=== PATIENT | female | born 1970 | race African-American/Black ===

== ENCOUNTER 2017-04-02 10:36 | Outpatient (CLI) | payer OTHER ==
--- NOTE | 2017-04-02 14:04 | RAD ---
LUMBAR SPINE THREE VIEWS: HISTORY: Low back pain. FINDINGS: Vertebral body heights are maintained. Mild osteophytosis is present throughout the vertebral indu s and facets. Grade I spondylolisthesis at the L4-5 level does not change significantly upon flexio n or extension. IMPRESSION: Lumbar spondylosis with grade I spondylolisthesis at the L4-5 level. POS: CRYSTAL
--- NOTE | 2017-04-02 15:25 | MRI ---
LUMBAR SPINE MRI NONCONTRAST: Date: 04/02/17 INDICATION: Lumbar radiculopathy. FINDINGS: Conus medullaris terminates at the L1 level. There is no acute abnormality of the retroperitoneum. M ultilevel bilateral facet osteoarthritis with associated hypertrophy present, greatest inferiorly, w ith moderate to severe facet osteoarthritis at the L4-5 level. L5-S1: Left asymmetric disc osteophyte complex results in mild central canal stenosis, moderate left and mi ld right neural foraminal stenosis. L4-5: Prominent right facet osteoarthritis with associated osseous hypertrophy occupying the posterior and right aspect of the vertebral canal results in moderate to severe central canal stenosis and imping ement of the traversing right L5 nerve root with severe right subarticular zone narrowing. There is mild bilateral, right greater than left, neural foraminal stenosis. L3-4: Mild narrowing of the central canal. No high grade foraminal stenosis. L2-3: No high grade central canal or foraminal compromise. L1-2: No high grade central canal or neural foraminal stenosis. IMPRESSION: Multilevel degenerative change, most pronounced at L4-5, with moderate to severe central canal steno sis and impingement upon the traversing right L5 nerve root. POS: CRYSTAL
== END 2017-04-02 10:37 | disposition home or self-care (01) ==
LOC: TBSIIMAG 10:36
PROVIDERS: ATTEND Neurological Surgery
DX: M47.26 Other spondylosis with radiculopathy, lumbar region (principal); M48.061 Spinal stenosis, lumbar region without neurogenic claudication; M43.16 Spondylolisthesis, lumbar region
CPT/HCPCS: 72100; 72148

== ENCOUNTER 2018-06-07 06:42 | Day surgery (SDC) | payer OTHER ==
[2018-05-18 13:07] VITALS: BMI 39.9
[2018-06-07 07:33] LABS: #Basophils 0.1 thou/uL (0.0-0.2); #Eosinphils 0.2 thou/uL (0.0-0.7); #Lymphocytes 2.8 thou/uL (1.20-3.40); #Monocytes 0.6 thou/uL (0.11-0.59); #Neutrophils 2.2 thou/uL (1.40-6.50); %Basophils 2.1 % (0.0-1.0); %Eosinophils 2.6 % (0.0-10.0); %Monocytes 10.3 % (0.0-10.0); Hemoglobin 12.1 g/dL (12.0-16.0); Mean Corpuscular HGB CONC 31.4 g/dL (32.0-36.0); Mean Corpuscular Hemoglobin 25.4 pg (27.0-31.0); Mean Corpuscular Volume 80.9 fL (78.0-98.0); Mean Platelet Volume 8.5 fL (7.4-10.4); Platelet Count 343 thou/uL (130-400); RBC Distribution Width 13.4 % (11.5-14.5); Red Blood Cell (RBC) Count 4.76 mill/uL (4.20-5.40); White Blood Cell (WBC) Count 5.9 thou/uL (4.8-10.8)
[2018-06-07 07:54] LABS: Anion Gap 12 mmol/L (10-20); BUN (Urea Nitrogen) 17 mg/dL (7.0-18.7); Calc. Creatinine Clearance 158 mL/min (70-130); Calcium 9.3 mg/dL (7.8-10.44); Carbon Dioxide 27 mmol/L (22-29); Chloride 101 mmol/L (98-107); Estimated GFR-MDRD 81; Glucose 84 mg/dL (70-105); Sodium 136 mmol/L (136-145)
[2018-06-07] MEDS ORDERED: Midazolam HCl 2 mg/2 ml Vial ONE (08:25)
[2018-06-07] MEDS ORDERED: CEFAZOLIN 2 GM/50 ML BAG ONE (08:25)
[2018-06-07] MEDS ORDERED: Sodium Chloride 0.9% 10 ML ONE (09:00)
[2018-06-07] MEDS ORDERED: Fentanyl 250 MCG/5 ML VIAL ONE (09:07)
[2018-06-07] MEDS ORDERED: Ondansetron HCl/PF 4 MG/2 ML Vial IVP PRN (10:09)
[2018-06-07] MEDS ORDERED: PACU-Morphine 4MG/ML VIAL SLOW IVP PRN (10:09)
[2018-06-07] MEDS ORDERED: Morphine Sulfate 2 MG/ML SYRINGE SLOW IVP PRN (10:09)
[2018-06-07] MEDS ORDERED: Promethazine HCl 25 MG/ML VIAL SLOW IVP PRN (10:09)
[2018-06-07] MEDS ORDERED: Meperidine HCl/PF 25 MG/ML VIAL SLOW IVP PRN (10:09)
[2018-06-07] MEDS ORDERED: Promethazine HCl 25 MG/ML VIAL IM PRN (10:09)
[2018-06-07] MEDS ORDERED: HYDROmorphone 2 MG/ML VIAL SLOW IVP PRN (10:09)
[2018-06-07] MEDS ORDERED: Fentanyl 100 MCG/2 ML VIAL ONE (11:06)
[2018-06-07] MEDS ORDERED: HYDROcodone/Acetaminophen 5/325 mg Tablet ONE (12:09)
--- NOTE | 2018-06-07 12:50 | OP ---
DATE OF PROCEDURE: 06/07/2018 DRY TRANSFER WORKER: Leticia. PROCEDURES PERFORMED: Right L4-L5 laminectomy, facetectomy, foraminotomy, interbody arthrodesis, intervertebral biomechanical device, local morselized autograft, demineralized bone matrix, posterolateral arthrodesis, pedicle screw instrumentation L4-L5. DESCRIPTION OF PROCEDURE: The patient was brought to the operating room and intubated. She was rolled in a prone position on gel-filled chest rolls. An incision was made exposing the L4 and L5 bilaterally and the level was confirmed by x-ray. We performed a right L4-L5 laminectomy, facetectomy, and foraminotomy, and completely decompressing right L4 and right L5. The disk itself was incised and debrided, and the bony endplates decorticated for the purpose of arthrodesis. An appropriate-sized intervertebral biomechanical PEEK device was brought on the field and filled with demineralized bone matrix, local morselized autograft, and tapped into place securely at L4-L5. Next, pedicle screws were placed at right L4 and right L5 using lateral fluoroscopic guidance and the position was confirmed with x-ray. A aziza was secured between these screws, connected by nuts, which were final tightened. The wound was then extensively irrigated and maximum hemostasis was secured. A combination of demineralized bone matrix and local morselized autograft was laid over the lamina on posterolateral surfaces for the purpose of arthrodesis. Vancomycin powder was applied, and the wound was closed in anatomic layers. Job ID: [id number] MTDD
[2018-06-07] MEDS ORDERED: Ketorolac Tromethamine 30 MG/ML VIAL ONE (14:55)
[2018-06-07] MEDS ORDERED: Metoclopramide HCl 10 MG/2 ML VIAL ONE (14:55)
[2018-06-07] MEDS ORDERED: PROPOFOL 200 MG/20 ML VIAL ONE (14:55)
[2018-06-07] MEDS ORDERED: Ondansetron PF 4 MG/2 ML Vial ONE (14:55)
[2018-06-07] MEDS ORDERED: Glycopyrrolate 0.2 MG/ML 5 ML SYRINGE ONE (14:55)
[2018-06-07] MEDS ORDERED: Lidocaine 1% PF 5 ML VIAL ONE ×2 (14:55)
[2018-06-07] MEDS ORDERED: Dexamethasone 20 MG/5 ML VIAL ONE (14:55)
--- NOTE | 2018-06-07 17:09 | EKG ---
Test Reason : PREOP Blood Pressure : / mmHG Vent. Rate : 057 BPM Atrial Rate : 057 BPM P-R Int : 154 ms QRS Dur : 088 ms QT Int : 436 ms P-R-T Axes : 061 034 070 degrees QTc Int : 424 ms Sinus bradycardia Nonspecific T wave abnormality Abnormal ECG No previous ECGs available Confirmed by DR. Chava SANCHEZ ([id number]) on 06/07/2018 5:09:00 PM Referred By: MEEK Confirmed By:DR. Chava SANCHEZ
== END 2018-06-07 12:40 | disposition home or self-care (01) ==
LOC: SDC 06:42
PROVIDERS: ATTEND Neurological Surgery
PROC: 0ST20ZZ Resection of Lumbar Vertebral Disc, Open Approach (ICD-10-PCS; principal; 2018-06-07)
PROC: 0SG00AJ Fusion of Lumbar Vertebral Joint with Interbody Fusion Device, Posterior Approach, Anterior Column, Open Approach (ICD-10-PCS; principal; 2018-06-07)
DX: M43.16 Spondylolisthesis, lumbar region (principal); M48.061 Spinal stenosis, lumbar region without neurogenic claudication; I10 Essential (primary) hypertension; Z79.899 Other long term (current) drug therapy
CPT/HCPCS: 36415; 76000; 80048; 85025; 93005; 93010; 96374; C1713; C1768; J1100; J1885; J2001; J2250; J2405; J2704; J2765; J3010; J3370; J3490